=== PATIENT | male | born 1945 | race Caucasian/White ===

== ENCOUNTER 2018-10-17 10:06 | Observation (INO) | payer MEDICARE ==
[~2018-10-17] VITALS: Ht 175.3 cm; Wt 73.6 kg
--- NOTE | 2018-10-17 10:42 | NUR ---
ERVIN RN: THIS IS A 73 YO MALE WHO PRESENTS TO THE ER C/O GENERALIZED FATIGUE, SOB AND DIZZINESS WORSE WITH EXERTION X 2 WEEKS. PT AO X 4. SKIN PWD. RESP EVEN AND UNLABORED. 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 PT ON CONT BP, CARDIAC AND O2 MONITORS. AT BEDSIDE. CALL LIGHT WITHIN REACH.
[2018-10-17] MEDS ORDERED: ASPIRIN 81 MG TABLET CHEW ONE (10:45)
--- NOTE | 2018-10-17 10:45 | NUR ---
RECEIVED REPORT FROM MYRANDA GRACE. CARE ASSUMED. IV PLACED PER [facility] NEW AND LABS DRAWN. PT MEDICATED NOTED PER ORDER WITH ASA FOR CP. NO ADDITIONAL ORDERS FROM [facility] PA, PT REFUSES NEED FOR PAIN MEDICATION. RATES CP 4/10 IN STERNUM "FEELS LIKE PRESSURE, LIKE SOMEONE PUSHING ON MY CHEST, CHANGING POSITIONS MAKES IT WORSE AND I FELT SHORT OF BREATH SINCE MONDAY." CONT PULSE OX, BP, CARDIAC MONITORS IN PLACE. SR ON MONITOR. VSS. CALL LIGHT IN REACH. FALL PRECAUTIONS IN PLACE. A&OX4. SISTER AT BEDSIDE.
[2018-10-17] MEDS ORDERED: ASPIRIN 81 MG TABLET CHEW PO ONE (11:00)
[2018-10-17 11:06] LABS: BASOPHILS % (AUTO) 1 % (0-1); EOSINOPHILS # (AUTO) 0.29 x10^3/uL (0-0.4); EOSINOPHILS % (AUTO) 4 % (1-7); LYMPHOCYTES # (AUTO) 2.41 x10^3/uL (1-3.4); LYMPHOCYTES % (AUTO) 32 % (22-44); MD NO; MEAN CORPUSCULAR HEMOGLOBIN 30.1 pg (27.5-34.5); MEAN CORPUSCULAR HGB CONC 33.6 g/dL (33.2-36.2); MEAN CORPUSCULAR VOLUME 89.8 fL (81-97); MEAN PLATELET VOLUME 9.1 fL (7.4-10.4); MONOCYTES # (AUTO) 0.45 x10^3/uL (0.2-0.8); MONOCYTES % (AUTO) 6 % (2-9); NEUTROPHILS # (AUTO) 4.27 x10^3/uL (1.8-6.8); NEUTROPHILS % (AUTO) 57 % (42-75); PLATELET COUNT 256 x10^3/uL (130-400); RED BLOOD COUNT 5.15 x10^6/uL (4.38-5.82); RED CELL DISTRIBUTION WIDTH 13.1 % (9.4-14.8)
[2018-10-17 11:13] LABS: ALBUMIN 3.6 g/dL (3.4-5.0); ANION GAP 6 mmol/L (5-15); CHLORIDE 111 mmol/L (98-107)
--- NOTE | 2018-10-17 11:14 | NUR ---
BEDSIDE REPORT AND CARE TO AKIRA WHITMORE AT THIS TIME.
[2018-10-17 11:17] LABS: TROPONIN I < 0.015 ng/mL (0.000-0.045)
[2018-10-17] MEDS ORDERED: LISI-167 PO (12:25)
[2018-10-17] MEDS ORDERED: SITA100T PO (12:25)
[2018-10-17] MEDS ORDERED: CALC-680 PO (12:25)
[2018-10-17] MEDS ORDERED: ATOR10TA PO (12:25)
[2018-10-17] MEDS ORDERED: METF500T17 PO (12:25)
[2018-10-17] MEDS ORDERED: VIT D PO (12:25)
[2018-10-17] MEDS ORDERED: LIDODERM 5% PATCH TD PRN (12:30)
[2018-10-17] MEDS ORDERED: LABETALOL 5MG/ML, 20ML IVPush PRN (12:30)
[2018-10-17] MEDS ORDERED: hydrALAzine 20 MG/ML, 1ML IVPush PRN (12:30)
[2018-10-17] MEDS ORDERED: ACETAMINOPHEN 325 MG TABLET PO PRN (12:30)
[2018-10-17] MEDS: LISINOPRIL 10 MG TABLET PO SCH (12:30)
--- NOTE | 2018-10-17 12:51 | NUR ---
REPORT TO VALENCIA WHITMORE, PT READY FOR TRANSPORT TO FLOOR.
[2018-10-17 13:19] VITALS: BP 144/84
[2018-10-17 13:45] LABS: HEMOGLOBIN A1C 7.4 % (4.2-6.3)
[2018-10-17] MEDS: HEPARIN 5,000 UNITS/ML, 1ML SQ SCH ×2 (14:36→20:13)
[2018-10-17] MEDS ORDERED: metFORMIN 500 MG TABLET PO SCH (16:00)
[2018-10-17 18:54] VITALS: BP 138/84
[2018-10-17] MEDS: metFORMIN 500 MG TABLET PO SCH (20:14)
[2018-10-17] MEDS ORDERED: TEMPLATE NON-FORMULARY MED. (Sitagliptin Phosphate** (Januvia**) 100 MG) PO SCH (21:00)
[2018-10-17] MEDS ORDERED: ATORVASTATIN 10 MG TABLET PO SCH (21:00)
[2018-10-18 00:11] VITALS: BP 113/74
[2018-10-18] MEDS: HEPARIN 5,000 UNITS/ML, 1ML SQ SCH ×2 (04:29→12:30)
[2018-10-18 05:37] LABS: BASOPHILS # (AUTO) 0.06 x10^3/uL (0-0.1); BASOPHILS % (AUTO) 1 % (0-1); EOSINOPHILS # (AUTO) 0.29 x10^3/uL (0-0.4); EOSINOPHILS % (AUTO) 4 % (1-7); LYMPHOCYTES # (AUTO) 2.62 x10^3/uL (1-3.4); LYMPHOCYTES % (AUTO) 38 % (22-44); MD NO; MEAN CORPUSCULAR HEMOGLOBIN 29.3 pg (27.5-34.5); MEAN CORPUSCULAR VOLUME 88.8 fL (81-97); MEAN PLATELET VOLUME 8.8 fL (7.4-10.4); MONOCYTES # (AUTO) 0.53 x10^3/uL (0.2-0.8); MONOCYTES % (AUTO) 8 % (2-9); NEUTROPHILS # (AUTO) 3.42 x10^3/uL (1.8-6.8); NEUTROPHILS % (AUTO) 49 % (42-75); PLATELET COUNT 225 x10^3/uL (130-400); RED CELL DISTRIBUTION WIDTH 13.4 % (9.4-14.8)
[2018-10-18 05:45] LABS: ANION GAP 5 mmol/L (5-15); CALCIUM 8.5 mg/dL (8.5-10.1); CHLORIDE 112 mmol/L (98-107)
[2018-10-18 06:35] VITALS: BP 121/68
[2018-10-18 07:50] LABS: TROPONIN I < 0.015 ng/mL (0.000-0.045)
[2018-10-18] MEDS: LISINOPRIL 10 MG TABLET PO SCH (08:12)
[2018-10-18] MEDS: metFORMIN 500 MG TABLET PO SCH (08:12)
[2018-10-18] MEDS ORDERED: REGADENOSON 0.4 MG/5 ML SYRINGE ONE (08:48)
[2018-10-18] MEDS ORDERED: CHOLECALCIFEROL 1,000 UNIT TABLET PO SCH (09:00)
[2018-10-18] MEDS ORDERED: CALCIUM CITRATE 950 MG TABLET PO SCH (09:00)
== END 2018-10-18 17:10 | disposition home or self-care (01) ==
LOC: ED 11:53 → EDIP 11:54 → INTOOBSV 11:54 → ED 12:19 → 5SO 13:06 → DCLOUNGE 10-18 17:00
PROVIDERS: ADMIT Hospitalist; ATTEND Hospitalist
DX: R07.89 Other chest pain (principal); R42 Dizziness and giddiness; I10 Essential (primary) hypertension; R00.0 Tachycardia, unspecified; E11.9 Type 2 diabetes mellitus without complications; K58.9 Irritable bowel syndrome, unspecified; Z82.49 Family history of ischemic heart disease and other diseases of the circulatory system; Z82.3 Family history of stroke
CPT/HCPCS: 0399T; 36415; 71046; 78452; 80048; 82040; 83036; 83735; 83880; 84100; 84443; 84484; 85025; 93005; 93017; 93306; 96372; 99284; A9502; C9898; G0378; J1644; J2785